=== PATIENT | female | born 1985 | race Two or more races ===

== ENCOUNTER 2016-06-04 20:00 | Inpatient (IN) | payer MEDICAID, OTHER ==
[2016-06-04 20:28] VITALS: BMI 27.0
[2016-06-04] MEDS ORDERED: PUMP TUBING ONE (21:07)
[2016-06-04] MEDS ORDERED: MINERAL OIL 25 ML BOT ONE (21:07)
[2016-06-04] MEDS ORDERED: OXYTOCIN 10 UNITS/ML VIAL ONE (21:07)
[2016-06-04] MEDS ORDERED: LIDOCAINE 1% (PRES FREE) 30 ML VIAL ONE (21:07)
[2016-06-04] MEDS ORDERED: LIDOCAINE Viscous 2% 15 ML UDCUP ONE (21:07)
[2016-06-04] MEDS ORDERED: OXYTOCIN IN LR 0 ML IV ONE (21:07)
[2016-06-04] MEDS ORDERED: OXYTOCIN 10 UNITS/ML VIAL IM ONE (21:12)
--- NOTE | 2016-06-04 22:03 | PCMDEL ---
Delivery Note - Labor 1st stage (hr/min):: 1hr 36min 2nd stage (hr/min):: 0hr 6min 3rd stage (hr/min):: 0hr 5min Total (hr/min):: 1hr 47min Pushed (hr/min):: 0hr 4min - Delivery Delivery (Date): 06/04/16 Delivery (Time): 21:12 Infant Gender: Female Presentation: Cephalic Position: OA Umbilical Cord: 3 Vessel Delayed Cord Clamping:: 2-3 min 1 Minute Total: 9 5 Minute Total: 9 Placenta:: complete and intact EBL:: 300ml Perineum:: inspected and intact Suture:: n/a Anesthesia/Meds:: none Length ROM:: 0hr 6min Comments:: Very rapid over intact perineum of vigorous 37wk female infant. Delayed cord clamping 3min. 3v cord. Active 3rd stage w IM Pit. Placenta del complete and intact. FF w massage. Perineum and vag inspected and intact. Baby and mom bonding skin to skin
[2016-06-04] MEDS ORDERED: BENZOCAINE/MENTHOL 60 APPLIC/BOT TP PRN (22:18)
[2016-06-04] MEDS ORDERED: LANOLIN 50 APPLIC/7G TUBE TP PRN (22:18)
[2016-06-04] MEDS ORDERED: MAGNESIUM HYDROXIDE 30 ML UDCUP PO PRN (22:18)
[2016-06-04] MEDS ORDERED: SENNOSIDES 8.6 MG TABLET PO PRN (22:18)
[2016-06-04] MEDS ORDERED: CALCIUM CARBONATE 500 MG TAB.CHEW PO PRN (22:18)
[2016-06-04] MEDS ORDERED: HYDROCODONE/ACETAMINOPHEN 5/325MG TABLET PO PRN (22:18)
--- NOTE | 2016-06-04 22:18 | PCMAN ---
OB Admission Note - History : 4 Term: 2 : 0 Abortions (S&E): 1 Livin EDC:: 06/21/16 Gestational Age (weeks): 37 Days (#/7): 4 Admit Cervical Dilation:: 8 Admit Cervical Effacement (%):: 100 Admit Station:: 0 Admit Presentaton:: vertex Membrane Status: Ruptured Rupture (Date): 06/04/16 Rupture (Time): 21:06 Membranes Comment:: clear Labor Onset (Date): 06/04/16 Labor Onset (Time): 19:30 Contractions: Yes Contraction Frequency:: 1730 Heart Rate:: 130 Status:: Cat I Summary of Course:: CC: UCs 30 yo at 37w4d w A1GDM c/o UCs since this PM. PNC: Started PNC at 14wks. Early dx DM. Controlled on diet thru care. OBHx: 09' Sab at 8wk '10 at 41wks '12 at 37 wks, A2GDM, Oligohydramnios PMH: noncontrib PSH: none SocHx: no tob/etoh/drugs SFOB no tob/etoh/drugs IZ: Tdap: 04/02/16 Flu vaccine 04/02/16 - Labs Blood Type: O (+) positive (ab neg) Rubella Status: Immune GBS Status: Negative Abnormal Labs: Other (3 hr gtt) Other Labs:: HIV NR HBsag NR Syphilis neg Chlam neg GC neg HA1C 5.7 - Physical Exam General: Afebrile, Mild Distress Psych/Mental Status: Mood/Affect Appropriate Neurological: Grossly Intact, Alert, Normal Speech HEENT: Atraumatic, Mucous membr. moist/pink Abdomen: Other (gravid) Genitourinary: Normal Female Genitalia Extremities: Full ROM, Normal Cap Refill, No Edema Skin: Normal Color, Warm, Dry - Problems (1) Active labor Status: Acute Code: [id number] Assessment/Plan: Admit Expt mgmt Anticipate rapid (2) GDM (gestational diabetes mellitus), class A1 Status: Acute Code: O24.410 Assessment/Plan: Will need DM testing at 6 wk PP exam
[2016-06-04] MEDS: IBUPROFEN 800 MG TABLET PO PRN (22:41)
[2016-06-05] MEDS: IBUPROFEN 800 MG TABLET PO PRN ×3 (05:49→21:06)
[2016-06-05 06:50] LABS: HEMATOCRIT 37.1 % (37.0-47.0); HEMOGLOBIN 12.9 gm/l (12.0-16.0)
[2016-06-05] MEDS: DOCUSATE SODIUM 100 MG CAPSULE PO PRN (08:24)
--- NOTE | 2016-06-05 11:02 | PDOC44 ---
- Subjective Day: 1 Reports Pain Tolerable, Reports - Objective Temp Pulse Resp BP Pulse Ox 99.0 F 75 16 93/50 06/05/16 08:19 06/05/16 08:19 06/05/16 08:19 06/05/16 08:19 Lab Results 06/05/16 06:40 Hgb 12.9 Hct 37.1 Current Medications Generic Name Dose Route Start Last Admin Trade Name Freq PRN Reason Stop Dose Admin Acetaminophen/Hydrocodone Bitart 1 - 2 tab 06/04/16 22:18 Scotrun 5/325 PO Q4H PRN Pain (Moderate) Benzocaine/Menthol 1 applic 06/04/16 22:18 Dermoplast TP PRN PRN Patient Comfort Calcium Carbonate/Glycine 500 - 1,000 mg 06/04/16 22:18 Tums PO BID PRN Indigestion Docusate Sodium 100 mg 06/04/16 22:18 06/05/16 08:24 Colace PO 100 mg DAILY PRN Administration Comfort Emollient Ointment 1 applic 06/04/16 22:18 Tde-P-Odytjl TP PRN PRN sore nipples Ibuprofen 800 mg 06/04/16 22:18 06/05/16 05:49 Motrin PO 800 mg Q6H PRN Administration Pain (Mild) Magnesium Hydroxide 30 ml 06/04/16 22:18 Milk Of Magnesia PO BEDTIME PRN Constipation Senna 17.2 mg 06/04/16 22:18 Senokot PO BEDTIME PRN Comfort Sodium Chloride 10 ml 06/04/16 22:18 Normal Saline 10ml Flush IV PRN PRN IV Flush Sodium Chloride 10 ml 06/05/16 01:00 06/05/16 03:41 Normal Saline 10ml Flush IV Not Given Q8HR KESHAWN - Physical Exam General: Afebrile Psych/Mental Status: Mood/Affect Appropriate, Judgment/Insight Intact, Bonding Well Neurological: Grossly Intact, Alert, Oriented x 4 Lungs: Clear to Auscultation Bilaterally, Normal Air Movement Cardiovascular: Regular Rate and Rhythm Fundus: Firm, Below Umbilicus - Problems:Assessment/Plan (1) GDM (gestational diabetes mellitus), class A1 Status: Acute Assessment/Plan: Will need DM testing at 6 wk PP exam (2) Vaginal delivery Status: Acute Assessment/Plan: Doing well Normal exam Continue routine care Disposition: Anticipate DC Home Tomorrow
--- NOTE | 2016-06-06 07:47 | PDOC39B ---
Hospital Course: ADMIT DATE: 06/04/16 DISCHARGE DATE: 06/06/16 ADMISSION DIAGNOSES: Active labor at term PROCEDURES: Normal Spontaneous Vaginal Delivery HISTORY OF PRESENT ILLNESS/HOSPITAL COURSE: 30 year old G4 T2 L2 at 37 weeks 4 days presented in labor and proceeded to a normal spontaneous vaginal delivery. By day of discharge the patient is ambulating, eating, voiding, and passing flatus without difficulty. Pain is controlled and lochia is appropriate. She is . - Physical Exam Vital Signs: Temp Pulse Resp BP Pulse Ox 98.2 F 62 16 108/60 06/06/16 01:22 06/06/16 01:22 06/06/16 01:22 06/06/16 01:22 General: Afebrile, No Acute Distress Neurological: Alert, Oriented x 4 Lungs: Clear to Auscultation Bilaterally Cardiovascular: Regular Rate and Rhythm Fundus: Firm, Midline Extremities: Full ROM, No Edema Skin: Normal Color, Warm, Dry, Intact, No Rash - Discharge Diagnosis (1) Vaginal delivery Status: Acute Assessment/Plan: PPD2. Nl exam and vitals. +BF. (2) GDM (gestational diabetes mellitus), class A1 Status: Acute Assessment/Plan: Will need DM testing - Discharge Plan Condition: Good Disposition: Home Prescriptions: Docusate Sodium [COLACE 100 MG CAPSULE (SHF)] 100 mg PO BID PRN #60 cap PRN Reason: Constipation Docusate Sodium [COLACE 100 MG CAPSULE (SHF)] 100 mg PO BID PRN #60 cap PRN Reason: Constipation Ibuprofen [Motrin] 800 mg PO TID PRN #30 tablet PRN Reason: Pain Ibuprofen [Motrin] 800 mg PO TID PRN #30 tablet PRN Reason: Pain Follow-Up: [facility] [Provider Group] - In 6 weeks
[2016-06-06 08:10] VITALS: BP 110/65
[2016-06-06] MEDS: DOCUSATE SODIUM 100 MG CAPSULE PO PRN (08:10)
== END 2016-06-06 10:34 | disposition home or self-care (01) | DRG 775 ==
LOC: FBCOUT 20:00 → FBC 20:00 → FBCOUT 20:35
PROVIDERS: ADMIT Family Medicine; ATTEND Family Medicine
PROC: 10E0XZZ Delivery of Products of Conception, External Approach (ICD-10-PCS; principal; 2016-06-04)
DX: O62.3 Precipitate labor (principal); O24.420 Gestational diabetes mellitus in childbirth, diet controlled; Z3A.37 37 weeks gestation of pregnancy; Z37.0 Single live birth